=== PATIENT | female | born 1955 | race Two or more races ===

== ENCOUNTER 2023-01-05 16:16 | Observation (INO) | payer OTHER ==
[2023-01-05] MEDS ORDERED: morphine CARPU-JECT 2 MG/1 ML DISP.SYRIN IVPUSH ONE (18:37)
[2023-01-05 19:11] LABS: POTASSIUM 5.1 mmol/L (3.5-5.1)
[2023-01-05 19:13] LABS: CALCIUM 9.8 mg/dL (8.5-10.1)
[2023-01-05 19:14] LABS: ALBUMIN 3.5 g/dl (3.4-5.0); BLOOD UREA NITROGEN 13.9 mg/dL (7-18)
[2023-01-05 19:17] LABS: CREATININE 0.8 mg/dL (0.55-1.3)
[2023-01-05 19:19] LABS: BASO % 0.7 % (0-2.0); BILIRUBIN,TOTAL 0.4 mg/dL (0.2-1); EOS % 1.3 % (0-4.5); HEMATOCRIT 35.8 % (32.4-45.2); HEMOGLOBIN 11.6 GM/dL (10.7-15.3); LYMPH % 20.5 % (8-40); MCH 29.7 pg (25.7-33.7); MCHC 32.3 g/dl (32.0-36.0); MEAN PLT VOLUME 8.8 fl (7.5-11.1); MONO % 10.7 % (3.8-10.2); NEUT % 66.8 % (42.8-82.8); PLATELET COUNT 293 10^3/uL (134-434); RDW 13.7 % (11.6-15.6); TOT PROT 7.5 g/dl (6.4-8.2); WHITE BLOOD COUNT 11.3 K/mm3 (4.0-10.0)
[2023-01-06] MEDS: METOPROLOL TARTRATE 25 MG TABLET (FP) PO SCH ×3 (00:25→21:18)
[2023-01-06] MEDS ORDERED: SODIUM CHLORIDE 1,000 ML IV SCH (02:00)
[2023-01-06] MEDS ORDERED: LORATADINE 10 MG TABLET PO PRN (02:06)
[2023-01-06 02:14] VITALS: BMI 25.9
[2023-01-06] MEDS ORDERED: ACETAMINOPHEN 500 MG TABLET (FP) PO PRN (05:30)
[2023-01-06] MEDS: INSULIN SLIDING SCALE (NOVOLOG) 1 VIAL SQ SCH ×4 (06:23→21:20)
[2023-01-06] MEDS ORDERED: ENOXAPARIN NA (PORCINE) 30 MG/0.3 ML DISP.SYRIN SQ SCH (10:00)
[2023-01-06] MEDS: ENOXAPARIN NA (PORCINE) 40 MG/0.4 ML DISP.SYRIN SQ SCH (10:27)
[2023-01-06] MEDS: ASPIRIN 81 MG CHEWABLE TABLETS PO SCH (10:27)
[2023-01-06 10:40] LABS: HEMATOCRIT 35.4 % (32.4-45.2); HEMOGLOBIN 11.8 GM/dL (10.7-15.3); MCH 30.2 pg (25.7-33.7); MCHC 33.4 g/dl (32.0-36.0); MEAN CELL VOLUME 90.5 fl (80-96); MEAN PLT VOLUME 8.5 fl (7.5-11.1); PLATELET COUNT 299 10^3/uL (134-434); RBC 3.91 M/mm3 (3.60-5.2); RDW 13.7 % (11.6-15.6); WHITE BLOOD COUNT 7.2 K/mm3 (4.0-10.0)
[2023-01-06 11:03] LABS: POTASSIUM 4.1 mmol/L (3.5-5.1)
[2023-01-06 11:04] LABS: CALCIUM 9.5 mg/dL (8.5-10.1)
[2023-01-06 11:06] LABS: ALBUMIN 3.3 g/dl (3.4-5.0); BLOOD UREA NITROGEN 9.1 mg/dL (7-18); MAGNESIUM 1.9 mg/dL (1.8-2.4)
[2023-01-06 11:08] LABS: PHOSPHOROUS 3.4 mg/dL (2.5-4.9)
[2023-01-06 11:09] LABS: CREATININE 0.8 mg/dL (0.55-1.3)
[2023-01-06 11:10] LABS: BILIRUBIN,TOTAL 0.5 mg/dL (0.2-1); TOT PROT 7.4 g/dl (6.4-8.2)
[2023-01-06 16:08] VITALS: RESP 18
[2023-01-06] MEDS ORDERED: ATORVASTATIN CA 20 MG TABLET (FP) PO SCH (22:00)
[2023-01-06] MEDS ORDERED: NAPROXEN 500 MG TABLET PO PRN (22:13)
[2023-01-07] MEDS: INSULIN SLIDING SCALE (NOVOLOG) 1 VIAL SQ SCH ×2 (06:07→11:07)
[2023-01-07] MEDS: ASPIRIN 81 MG CHEWABLE TABLETS PO SCH (09:25)
[2023-01-07] MEDS: METOPROLOL TARTRATE 25 MG TABLET (FP) PO SCH (09:25)
[2023-01-07] MEDS: ENOXAPARIN NA (PORCINE) 40 MG/0.4 ML DISP.SYRIN SQ SCH (09:25)
[2023-01-07] MEDS ORDERED: FAMOTIDINE 20 MG TABLET PO SCH (10:00)
[2023-01-07 11:09] LABS: BASO % 0.8 % (0-2.0); HEMATOCRIT 35.8 % (32.4-45.2); HEMOGLOBIN 12.1 GM/dL (10.7-15.3); MCH 30.2 pg (25.7-33.7); MCHC 33.6 g/dl (32.0-36.0); MEAN CELL VOLUME 89.9 fl (80-96); MEAN PLT VOLUME 8.5 fl (7.5-11.1); MONO % 9.1 % (3.8-10.2); NEUT % 65.1 % (42.8-82.8); PLATELET COUNT 332 10^3/uL (134-434); RBC 3.99 M/mm3 (3.60-5.2); RDW 13.6 % (11.6-15.6); WHITE BLOOD COUNT 7.7 K/mm3 (4.0-10.0)
[2023-01-07 11:24] LABS: POTASSIUM 4.7 mmol/L (3.5-5.1)
[2023-01-07 11:26] LABS: CALCIUM 9.5 mg/dL (8.5-10.1)
[2023-01-07 11:27] LABS: ALBUMIN 3.5 g/dl (3.4-5.0); BLOOD UREA NITROGEN 12.5 mg/dL (7-18)
[2023-01-07 11:30] LABS: CREATININE 0.7 mg/dL (0.55-1.3)
[2023-01-07 11:32] LABS: BILIRUBIN,TOTAL 0.4 mg/dL (0.2-1); TOT PROT 7.8 g/dl (6.4-8.2)
[2023-01-07 14:05] VITALS: BP 101/55; PULSE 80
[2023-01-07 15:48] VITALS: TEMP 98.7
== END 2023-01-07 16:00 | disposition home or self-care (01) ==
LOC: JER 16:16 → JERBED 23:43 → OBSVTOIN 23:43 → INTOOBSV 23:43 → UNDOADMOB 23:43 → J5S 01-06 01:04 → JERBED 01-06 01:04 → J5S 01-06 10:18 → JERBED 01-06 10:18
PROVIDERS: ADMIT Internal Medicine
PROC: 3E033GC Introduction of Other Therapeutic Substance into Peripheral Vein, Percutaneous Approach (ICD-10-PCS; principal; 2023-01-06)
PROC: 3E0337Z Introduction of Electrolytic and Water Balance Substance into Peripheral Vein, Percutaneous Approach (ICD-10-PCS; 2023-01-06)
PROC: 3E013VG Introduction of Insulin into Subcutaneous Tissue, Percutaneous Approach (ICD-10-PCS; 2023-01-06)
PROC: 3E013GC Introduction of Other Therapeutic Substance into Subcutaneous Tissue, Percutaneous Approach (ICD-10-PCS; 2023-01-06)
DX: R07.89 Other chest pain (principal); M25.511 Pain in right shoulder; M25.512 Pain in left shoulder; D72.829 Elevated white blood cell count, unspecified; I10 Essential (primary) hypertension; E11.9 Type 2 diabetes mellitus without complications; E78.5 Hyperlipidemia, unspecified; I25.10 Atherosclerotic heart disease of native coronary artery without angina pectoris; R00.1 Bradycardia, unspecified; Z95.1 Presence of aortocoronary bypass graft; Z79.84 Long term (current) use of oral hypoglycemic drugs; Z99.89 Dependence on other enabling machines and devices; E11.40 Type 2 diabetes mellitus with diabetic neuropathy, unspecified
CPT/HCPCS: 36415; 71046-TC-FY; 71275-TC; 72125-TC; 73030-TC-LT-FY; 73030-TC-RT-FY; 74174-TC; 80053; 82550; 82962; 83735; 84100; 84484; 85025; 85027; 86038; 86431; 87635; 93005; 93010; 96361; 96372; 96374; 97116-GP; 97162-GP; 99285-25; G0378; Q9967